=== PATIENT | male | born 1970 | race Caucasian/White ===

== ENCOUNTER 2020-09-02 11:12 | Emergency (ER) | payer OTHER ==
[~2020-09-02] VITALS: Ht 157.5 cm; Wt 66.5 kg
--- NOTE | 2020-09-02 11:52 | NUR ---
PT CAME IN CO CHEST PAIN THAT STARTED LAST WEDNESDAY AND CAME ON GRADUALLY. PT REPORTS IT A ACHY DULL PAIN. PT ALSO SAYS HES UNDER A LOT OF STRESS LATELY AND THINKS THAT MAY HAVE CONTRIBUTED. FRIEND, BEDSIDE, SAYS THAT IT LOOKS LIKE HE HAS A "PANIC ATTACK SOMETIMES". PT RESTING IN [facility]. CONNECTED TO ALL MONITORING EQUIPMENT.
[2020-09-02 11:54] LABS: BASOPHILS % (AUTO) 1 % (0-1); EOSINOPHILS % (AUTO) 0 % (1-7); LYMPHOCYTES % (AUTO) 15 % (22-44); MEAN CORPUSCULAR HEMOGLOBIN 32.4 pg (27.5-34.5); MEAN CORPUSCULAR HGB CONC 34.9 g/dL (33.2-36.2); MEAN PLATELET VOLUME 8.3 fL (7.4-10.4); MONOCYTES % (AUTO) 7 % (2-9); NEUTROPHILS % (AUTO) 78 % (42-75); PLATELET COUNT 199 x10^3/uL (130-400); RED BLOOD COUNT 5.79 x10^6/uL (4.38-5.82); RED CELL DISTRIBUTION WIDTH 13.1 % (9.4-14.8)
[2020-09-02 11:56] LABS: MD NO
[2020-09-02] MEDS ORDERED: ASPIRIN 81 MG TABLET CHEW PO ONE (12:00)
[2020-09-02 12:06] LABS: ALBUMIN 4.2 g/dL (3.4-5.0); ANION GAP 5 mmol/L (5-15); CALCIUM 9.3 mg/dL (8.5-10.1); CHLORIDE 109 mmol/L (98-107)
[2020-09-02] MEDS ORDERED: ASPIRIN 81 MG TABLET CHEW ONE (12:07)
[2020-09-02 12:11] LABS: CREATININE 0.87 mg/dL (0.7-1.3); TROPONIN I < 0.015 ng/mL (0.000-0.045)
--- NOTE | 2020-09-02 12:11 | NUR ---
PT MEDICATED PER JUN. EDUCATED ON PLAN OF CARE
[2020-09-02 13:39] VITALS: BP 173/106
--- NOTE | 2020-09-02 13:39 | NUR ---
PT UP FOR RECHECK
== END 2020-09-02 14:15 | disposition home or self-care (01) ==
LOC: ED 14:05
DX: R07.89 Other chest pain (principal); I10 Essential (primary) hypertension; F17.200 Nicotine dependence, unspecified, uncomplicated; R94.31 Abnormal electrocardiogram [ECG] [EKG]
CPT/HCPCS: 36415; 71045; 80048; 82040; 84484; 85025; 85379; 93005; 99285